=== PATIENT | female | born 1975 | race Caucasian/White ===

== ENCOUNTER 2017-01-21 15:52 | Emergency (ER) | payer OTHER ==
[~2017-01-21] VITALS: Ht 157.5 cm; Wt 79.4 kg
[2017-01-21 16:59] LABS: BASOPHIL % 1.9 % (0-2); PLATELET COUNT 138 x10^3mcL (130-400); RED CELL DISTRIBUTION WIDTH 21.8 % (11.5-14.5)
[2017-01-21 17:14] LABS: CALCIUM 8.8 mg/dL (8.5-10.1); CARBON DIOXIDE 28.5 mmol/L (21-32); CHLORIDE SERUM 103 mmol/L (98-107); GFR1 > 60 mL/min; GLUCOSE SERUM 115 mg/dL (74-106); SODIUM SERUM 140 mmol/L (136-145)
[2017-01-21 17:18] LABS: ALBUMIN 3.5 g/dL (3.4-5.0); ALKALINE PHOSPHATASE 62 U/L (46-116); ALT/SGPT 17 U/L (14-59); AST/SGOT 10 U/L (15-37); BILIRUBIN TOTAL 0.24 mg/dL (0.20-1.00); LIPASE 97 IU/L (73-393); MAGNESIUM 1.9 mg/dL (1.8-2.4); TOTAL PROTEIN, SERUM 7.4 g/dL (6.4-8.2)
[2017-01-21 22:56] VITALS: BP 122/82
== END 2017-01-21 22:56 | disposition short-term general hospital (02) ==
LOC: ED 15:52
PROVIDERS: Emergency Medicine
DX: R07.9 Chest pain, unspecified (principal); R10.9 Unspecified abdominal pain; I26.99 Other pulmonary embolism without acute cor pulmonale; I82.621 Acute embolism and thrombosis of deep veins of right upper extremity; D64.9 Anemia, unspecified
CPT/HCPCS: J3010; Q0092

== ENCOUNTER 2018-04-01 21:48 | Emergency (ER) | payer BC ==
[~2018-04-01] VITALS: Ht 157.5 cm; Wt 81.3 kg
[2018-04-01 22:04] VITALS: Ht 157.5 cm; Wt 81.3 kg
[2018-04-01 23:14] LABS: BASOPHIL % 0.9 % (0-2); PLATELET COUNT 245 x10^3mcL (130-400); RED CELL DISTRIBUTION WIDTH 14.3 % (11.5-14.5)
[2018-04-01 23:28] LABS: CALCIUM 8.6 mg/dL (8.5-10.1); CARBON DIOXIDE 27.8 mmol/L (21-32); CHLORIDE SERUM 105 mmol/L (98-107); GFR1 > 60 mL/min; GLUCOSE SERUM 91 mg/dL (74-106); POTASSIUM SERUM 3.9 mmol/L (3.5-5.1); SODIUM SERUM 143 mmol/L (136-145)
[2018-04-01 23:33] LABS: ALBUMIN 4.1 g/dL (3.4-5.0); ALKALINE PHOSPHATASE 67 U/L (46-116); ALT/SGPT 29 U/L (14-59); AST/SGOT 21 U/L (15-37); BILIRUBIN TOTAL 0.2 mg/dL (0.20-1.00); TOTAL PROTEIN, SERUM 7.6 g/dL (6.4-8.2)
[2018-04-02 00:11] LABS: microscopic required? NO
[2018-04-02 00:29] LABS: UA SPECIFIC GRAVITY <=1.005 (1.005-1.035); urine erythrocyte NEGATIVE (NEGATIVE)
[2018-04-02 01:28] VITALS: BP 111/57
== END 2018-04-02 01:28 | disposition left against medical advice (07) ==
LOC: ED 21:48
PROVIDERS: Emergency Medicine
DX: I63.9 Cerebral infarction, unspecified (principal)
CPT/HCPCS: J1650; Q0092